=== PATIENT | female | born 1940 | race Caucasian/White ===

== ENCOUNTER → 2020-01-11 12:50 | Outpatient (BNVA) | payer MEDICARE, SELFPAY | PROVIDERS: Referring Provider Registered Nurse; Visit Provider Nurse Practitioner | DX: F03.90 Unspecified dementia, unspecified severity, without behavioral disturbance, psychotic disturbance, mood disturbance, and anxiety (principal); R25.1 Tremor, unspecified | CPT/HCPCS: 99204 ==

== ENCOUNTER → 2020-04-05 11:40 | Outpatient (BNVA) | payer MEDICARE, SELFPAY | PROVIDERS: PCP Registered Nurse; Referring Provider Registered Nurse; Visit Provider Nurse Practitioner | DX: R25.1 Tremor, unspecified (principal) | CPT/HCPCS: 99213 ==